=== PATIENT | female | born 1940 | race Caucasian/White ===

== ENCOUNTER 2021-04-08 18:38 | Emergency (ER) | payer OTHER ==
[~2021-04-08] VITALS: Ht 152.4 cm; Wt 48.5 kg
[2021-04-08] MEDS ORDERED: ONDANSETRON HCL 4 MG/2 ML VIAL IV ONE (18:45)
[2021-04-08] MEDS ORDERED: SODIUM CHLORIDE 0.9% 1,000 ML IV ONE (18:45)
[2021-04-08 19:30] LABS: Alcohol, Urine < 3.0 mg/dL (0-10); Amphetamine Screen, Urine NEGATIVE (NEGATIVE); Barbiturate Scree,Urine POSITIVE (NEGATIVE); Benzodiazephine Screen, Urine POSITIVE (NEGATIVE); Cannabinoid Screen, Urine NEGATIVE (NEGATIVE); Cocaine Screen, Urine NEGATIVE (NEGATIVE); Opiate Scree,Urine NEGATIVE (NEGATIVE); Phencyclidine Screen, Urine NEGATIVE (NEGATIVE)
[2021-04-08 19:32] LABS: Basophils # (auto) 0 10 ^3/uL (0-0.2); Eosinophils # (auto) 0.1 10 ^3/uL (0-0.8); Lymphocytes # (auto) 0.8 10 ^3/uL (0.4-5.4); Monocytes # (auto) 0.4 10 ^3/uL (0-1.3)
[2021-04-08 19:33] LABS: Basophils % (auto) 0.3 % (0.0-2.0); Eosinophils % (auto) 2.6 % (0.0-7.0); Hematocrit 35.1 % (36.0-46.0); Hemoglobin 11.9 g/dL (12.2-16.2); Lymphocytes % (auto) 13.1 % (10.0-50.0); Mean Corpuscular Hemoglobin 33.6 pg (28.0-32.0); Mean Corpuscular Hgb Conc. 33.9 g/dL (32.0-36.0); Monocytes % (auto) 6.6 % (0.0-12.0); Neutrophils # (auto) 4.5 10 ^3/uL (1.6-8.6); Neutrophils % (auto) 77.4 % (37.0-80.0); Nucleated Red Blood Cells % 0.1 %; Red Blood Cells 3.54 10^6/uL (4.0-5.20); Red Cell Distribution Width 13.8 % (11.8-14.3); White Blood Cell 5.7 10^3/uL (4.4-10.8)
[2021-04-08] MEDS ORDERED: LORazepam 2MG/ML-1ML VIAL IV ONE (20:00)
[2021-04-08 20:58] VITALS: BP 152/71
[2021-04-08] MEDS ORDERED: ONDA-144 PO (21:04)
== END 2021-04-08 21:35 | disposition home or self-care (01) ==
LOC: ER 18:43
DX: F41.9 Anxiety disorder, unspecified (principal); R11.0 Nausea; Z90.710 Acquired absence of both cervix and uterus
CPT/HCPCS: 36415; 80307; 85025; 93005; 96361; 96374; 96375; 99284; J2060; J2405; J7030

== ENCOUNTER 2024-06-03 20:41 | Emergency (ER) | payer OTHER ==
[~2024-06-03] VITALS: Ht 157.5 cm; Wt 59.0 kg
[~2024-06-03 20:41] MED LIST: ONDA-144 PO
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
[2024-06-03] MEDS: fentaNYL CITRATE 100 MCG/2 ML VL IM ONE (22:30)
--- NOTE | 2024-06-03 23:38 | DVH ---
EXAM: CT LS SPINE WO CONTRAST HISTORY: low back pain COMPARISON: None CTDIvol 19.39 mGy, DLP 802.49 mGy*cm. TECHNIQUE: Multiple axial CT images of the spine were obtained using bone algorithm. Axial and coron al reformatting was done. Bone and soft tissue windows were reviewed. FINDINGS: Hardware present status post L3 through S1 bilateral posterior pedicle screw fixation. No definite ev idence of hardware failure. Interbody disc spacers in position. Subacute to chronic appearing compression fracture deformity of the superior L1 endplate resulting in approximately 25% height loss and with mild right paramedian retropulsion of fracture fragments into the central canal by approximately 0.4 cm. No definite acute fractures are identified. Degenerative changes include severe L2-L3 disc height loss with adjacent endplate sclerosis and anter ior disc osteophyte complex formation. Right sacral Tarlov cyst noted. IMPRESSION: 1. No definite CT evidence of acute fracture or dislocation of the bony lumbar spine. 2. Subacute to chronic appearing compression fracture of the superior L1 endplate with associated min or right paramedian retropulsion of fracture fragments into the central canal by approximately 0.4 cm . 3. Postsurgical and degenerative change.
[2024-06-04] MEDS ORDERED: CYCL-839 PO (00:24)
[2024-06-04] MEDS ORDERED: IBU600T PO (00:24)
[2024-06-04] MEDS: fentaNYL CITRATE 100 MCG/2 ML VL IM ONE (00:47)
[2024-06-04 00:51] VITALS: BP 129/69; PULSE 95; RESP 18; TEMP 98.7; O2SAT 93
== END 2024-06-04 01:25 | disposition home or self-care (01) ==
LOC: EDBD 20:41 → ER 20:41
DX: M79.18 Myalgia, other site (principal); M54.50 Low back pain, unspecified; F41.9 Anxiety disorder, unspecified; E03.9 Hypothyroidism, unspecified; Z87.440 Personal history of urinary (tract) infections; Z90.710 Acquired absence of both cervix and uterus
CPT/HCPCS: 72131; 96372; 99285; J3010